=== PATIENT | male | born 1945 | race Caucasian/White ===

== ENCOUNTER 2020-03-23 23:55 | Emergency (ER) | payer MEDICARE, OTHER, SELFPAY ==
[2020-03-23 23:59] VITALS: BP 115/61; PULSE 91; RESP 16; TEMP 36.7; O2SAT 98
--- NOTE | 2020-03-24 | DI.RAD_ITS ---
EXAM: XR CHEST 2V PA LATERAL CLINICAL HISTORY: post rib pain L and R after fall, r/o fx attn 5- 7 TECHNIQUE: 2D digital imaging was performed. COMPARISON: No exams were available for comparison FINDINGS: MEDIASTINUM: Normal. HEART: Normal. PULMONARY VASCULATURE: Normal. LUNGS: Clear. PLEURAL SPACE: No pleural effusion or pneumothorax. BONE:Normal. IMPRESSION: No acute pulmonary findings. DATA REPOSITORY: RADIATION DOSE DELIVERED:
--- NOTE | 2020-03-24 00:07 | W.ED.GENAD ---
Discharge Plan Disposition Patient Disposition: HOME Condition: Good Discharge Details Chief Complaint: Nk/Back Pain Clinical Impression: Pain in rib Primary Care Provider: Aniyah,Local ED Provider: Rodney Mcgraw Home Meds and New Rx's Prescriptions: New lidocaine [Lidoderm] 1 PATCH patch 1 patch Topical Q24H Qty: 4 RF: 0 Continued aspirin 81 mg Tablet,Chewable 81 mg PO DAILY RF: 0 Discharge Instructions Instructions: Chest Wall Pain (ED) Additional Instructions: At this time the x-ray does not show any evidence of fracture of the ribs or popped lung. You likely notably bruised your ribs and that is what is causing your pain. Please continue to use the Lidoderm patch as directed. Please take 1000 mg of Tylenol every 6 hours and 600 mg of ibuprofen every 6 hours for the next 1 to 2 days to help with the pain. If you notice any worsening of your symptoms, or any new symptoms such as vomiting, diarrhea, fever, chills, shortness of breath, chest pain, numbness, weakness, or fainting , please return immediately to the emergency department for reevaluation. Please follow up with your primary care provider as soon as possible for reassessment and reevaluation. As always, it was a pleasure participating in your medical care today. Medical Decision Making 74-year-old male with no significant past medical history of diabetes, and he does take a daily aspirin. He presents today for evaluation of rib pain. At 7:30 PM which was over 4 hours ago patient states that he was in a seated position on a chair when 2 dog leashes caught the back of the chair causing him to fall backward and he landed on his back. He did not strike his head or lose consciousness. He states that he felt like he lost his breath at that time. He did take ibuprofen but has not taken any other medications. The pain is not improved since then. He denies any numbness or tingling. Pain is made worse with movement and breathing. He had no chest pain before that event. Pain is described as aching and sharp in nature. He denies any neck pain, low back pain, or other complaints. No other modifying factors. Physical exam demonstrates minimal pain at the ribs between the 2 scapulas. No evidence of significant abnormality otherwise so. Bedside limited ultrasound shows good lung sliding on both sides. No other abnormalities. Will get a chest x-ray to rule out. Pneumothorax unlikely. Will give Tylenol and Lidoderm patch. 12:32 AM X-ray results are negative for pneumothorax or rib fracture. Signs and symptoms clinically consistent with rib contusion. Signs and symptoms notably inconsistent with ACS as the event was traumatic in nature, and minor at that. No clinical evidence whatsoever of traumatic dissection. No evidence or indication for additional imaging at this time. No midline tenderness over the thoracic spine. Patient will be discharged with recommendations for Tylenol, Motrin continue Lidoderm patch. Discussed red flags which to return. I have extensively reviewed the treatment plan and discharge instructions with the patient. I have addressed all patient concerns at this time. The patient was made aware of what symptoms to monitor for that would warrant a return to the emergency department. Discussed the plan with the patient, they demonstrate verbal understanding and agreement with our assessment and plan at this time. FINDINGS: Lungs: Unremarkable. No consolidation. Pleural space: Unremarkable. No pleural effusion. No pneumothorax. Heart/Mediastinum: Unremarkable. No cardiomegaly. Bones/joints: Unremarkable. IMPRESSION: No acute findings. Thank you for allowing us to participate in the care of your patient. Dictated and Authenticated by: Mejia Clarke HPI General Date/Time Provider Initiated Documentation: 03/23/20 23:56. [facility] Narrative: 74-year-old male with no significant past medical history of diabetes, and he does take a daily aspirin. He presents today for evaluation of rib pain. At 7:30 PM which was over 4 hours ago patient states that he was in a seated position on a chair when 2 dog leashes caught the back of the chair causing him to fall backward and he landed on his back. He did not strike his head or lose consciousness. He states that he felt like he lost his breath at that time. He did take ibuprofen but has not taken any other medications. The pain is not improved since then. He denies any numbness or tingling. Pain is made worse with movement and breathing. He had no chest pain before that event. Pain is described as aching and sharp in nature. He denies any neck pain, low back pain, or other complaints. No other modifying factors. Related Data Home Medications Medication Instructions Recorded Confirmed aspirin 81 mg PO DAILY 03/24/20 03/24/20 lidocaine [Lidoderm] 1 patch TOPICAL Q24H #4 patch 03/24/20 Previous Rx's Medication Instructions Recorded lidocaine [Lidoderm] 1 patch TOPICAL Q24H #4 patch 03/24/20 Allergies Allergy/AdvReac Type Severity Reaction Status Date / Time No Known Allergies Allergy Unverified 03/24/20 00:05 General Stated Complaint: Nk/Back Pain FELICE: 3 Review of Systems All systems reviewed & are unremarkable except as noted in HPI and below PFSH Social History Smoking/Tobacco Use Status: Former Tobacco Use Alcohol Intake: never Substance use type: does not use Exam Narrative Exam Narrative: 1.Const: Well-nourished, Well-developed, appearing stated age 2.Eyes: PERRL, no conjunctival injection, and symmetrical lids. 3.ENT: Atraumatic external nose and ears. Moist MM. Neck: Symmetric, trachea midline, No thyromegaly. There is no evidence of raccoon eyes, morris sign, CSF rhinorrhea, mastoid tenderness, cranial crepitus, hemotympanum, exophthalmos, or hyphema. Patient demonstrates intact dentition with no signs of tooth avulsion or fracture, no signs of jaw deformity, no evidence of a LeFort's fracture, with an intact palate, nose and orbital region. There is no evidence of a nasal septal hematoma. No proptosis. Jaw closes symmetrically. Airway is clear. 4.CVS: +S1/S2, No murmurs or gallops. Peripheral pulses 2+ and equal in all extremities. Brisk capillary refill in all extremities. 5.RESP: Unlabored respiratory effort. Clear to auscultation bilaterally. No wheezes rales or rhonchi.airway clear, no obstructions. No abrasions or ecchymosis. Chest movement symmetric with respirations. No chest wall tenderness found for mild subjective tenderness over the paraspinal border of the ribs between the scapula. Trachea midline. No crepitus. No step offs. No paradoxical movements. Lungs are clear to auscultation bilaterally. No rales, rhonchi, wheezing or stridor. Breath sound symmetric. No Sucking chest wounds. No clinical evidence of significant chest trauma. 6.GI: Soft, Nontender/Nondistended, No hepatosplenomegaly. No guarding or rebound. 7.MSK: Normocephalic/Atraumatic, Extremities w/o deformity or ttp No cyanosis or clubbing, Normal movement of all extremities no midline tenderness to palpation over the CTLS spine. Normal ROM in flexion, extension, side bend, and rotation. Patient has +5 out of 5 strength in the lower extremities in dorsiflexion and plantarflexion, knee flexion and extension, hip flexion and extension. Normal strength for dorsiflexion and plantar flexion of the great toe bilaterally. There is +2 over 2 dorsalis pedis pulses bilaterally. There is normal sensation to the skin with light touch at the foot, knee, and hip. Normal saddle sensation. Good sensation over the deep sural nerve area bilaterally. Rectal exam deferred. Reflexes are +2 over 4 in the patellar reflex bilaterally. +5 out of 5 strength in the medial, ulnar, radial nerve distribution bilaterally in the hands as well as intact light touch sensation to these dermatomes on the hands 8.Skin: Warm, Dry. No rashes or lesions. 9.Neuro: cable strander II-XII grossly intact. Sensation grossly intact, no focal neurologic deficits. 10.Psych: (AAO) x3. Appropriate mood and affect Course Vital Signs Vital signs: Vital Signs Temperature 36.7 C 03/23/20 23:59 Pulse 91 H 03/23/20 23:59 Respiratory Rate 16 03/23/20 23:59 Blood Pressure 115/61 03/23/20 23:59 Pulse Oximetry 98 03/23/20 23:59 Temperature 36.7 C 03/23/20 23:59 Temperature Source Temporal Artery Scan 03/23/20 23:59 Pulse 91 H 03/23/20 23:59 Respiratory Rate 16 03/23/20 23:59 Respiratory Effort 03/24/20 00:02 Blood Pressure 115/61 03/23/20 23:59 Blood Pressure Position Sitting 03/23/20 23:59 Pulse Oximetry 98 03/23/20 23:59 Pain Level 8 03/23/20 23:59
[2020-03-24] MEDS: Acetaminophen 500 MG TAB 1000 MG PO (00:15)
--- NOTE | 2020-03-24 00:30 | DI.VRAD_ITS ---
PROCEDURE INFORMATION: Exam: XR Chest, 2 Views Exam date and time: 03/24/2020 12:18 AM Age: 74 years old Clinical indication: Injury or trauma; Initial encounter; Blunt trauma (contusions or hematomas); Injury date: 03/23/20; Injury details: Post rib pain L and R after fall, R/O FX attn. 5-7 TECHNIQUE: Imaging protocol: XR of the chest Views: 2 views. COMPARISON: No relevant prior studies available. FINDINGS: Lungs: Unremarkable. No consolidation. Pleural space: Unremarkable. No pleural effusion. No pneumothorax. Heart/Mediastinum: Unremarkable. No cardiomegaly. Bones/joints: Unremarkable. IMPRESSION: No acute findings. Dictated and Authenticated by: Mejia Garcia MD. Ordering:SULEMAN Stevens MD
[2020-03-24] MEDS: Lidocaine 5% Patch 1 PATCH TP (00:55)
== END 2020-03-24 00:35 | disposition home or self-care (01) ==
LOC: ER 03-24 00:59
PROVIDERS: Emergency Provider Student in an Organized Health Care Education/Training Program
DX: R07.81 Pleurodynia (principal); W07.XXXA Fall from chair, initial encounter
CPT/HCPCS: 99283; 71046